=== PATIENT | male | born 1990 | race Hispanic/Latino ===

== ENCOUNTER 2023-07-03 01:18 | Emergency (ER) | payer OTHER ==
[2023-07-03] MEDS ORDERED: Lidocaine 1% (PF) 30 ML VIAL ONE (01:45)
[2023-07-03] MEDS ORDERED: Bacitracin 1 PK ONE (02:10)
[2023-07-03] MEDS ORDERED: Ibuprofen 800 MG TAB ONE (02:19)
== END 2023-07-03 02:26 | disposition home or self-care (01) ==
LOC: MADERS 01:18
DX: T81.31XA Disruption of external operation (surgical) wound, not elsewhere classified, initial encounter (principal)
CPT/HCPCS: 12002; J2001